=== PATIENT | male | born 1940 | race Caucasian/White ===

== ENCOUNTER 2022-03-25 12:12 | Emergency (ER) | payer MEDICARE, BC ==
[2022-03-25] MEDS ORDERED: Acetaminophen 500 MG Tab PO ONE (13:47)
[2022-03-25] MEDS ORDERED: traMADol 50 MG Tab PO STA (14:20)
== END 2022-03-25 15:04 | disposition home or self-care (01) ==
LOC: FB.ED 12:12
DX: S22.42XA Multiple fractures of ribs, left side, initial encounter for closed fracture (principal); Z88.5 Allergy status to narcotic agent; W18.09XA Striking against other object with subsequent fall, initial encounter
CPT/HCPCS: 71101; 73080; 99284; A9270